=== PATIENT | female | born 1985 | race Caucasian/White ===

== ENCOUNTER 2016-07-03 16:39 | Emergency (ER) | payer OTHER ==
[~2016-07-03] VITALS: Ht 167.6 cm; Wt 131.5 kg
[~2016-07-03 16:39] MED LIST: ASPI81TA82 PO; FOLI5CAP PO; MACR100C PO; PRENTAB72 PO
[2016-07-03 17:41] VITALS: BP 126/96; PULSE 100
[2016-07-03] MEDS ORDERED: ACETAMINOPHEN 325 MG TAB PO ONE (17:45)
[2016-07-03 17:46] VITALS: BP 124/77; PULSE 122
[2016-07-03 18:08] LABS: BACTERIA, URINE FEW /hpf; BLOOD, URINE NEG (NEG); COMMENT (UR) CULT NOT INDICATED; CULTURE IF INDICATED CULT NOT INDICATED; GLUCOSE,URINE NEG (NEG); KETONE, URINE NEG (NEG); MUCUS URINE FEW /lpf (OCC); NITRITE,URINE NEG (NEG); PH, URINE 5.5 (5.0-8.5); SQUAMOUS EPITHELIAL CELL URINE 6 /hpf (0-5); URINE COLOR YELLOW (YELLW/STRAW)
--- NOTE | 2016-07-03 18:20 | PD ---
HPI Chief Complaint abdominal cramping, sob, headache Date Seen: Jul 03, 2016 Time Seen: 17:30 Travel History International Travel<30 Days: No Contact w/Intl Traveler<30Days: No Known Affected Area: No History of Present Illness HPI Pt is a 30 y/o CF with IUP at 16 wks by stated AMI who presents with multiple complaints: sharp abdominal pains (diffuse location, intermittent), lower abdominal cramping, sob with exertion, headache. Pt reports sharp abdominal pain intermittently x 2 days, currently feeling on both sides. also feeling some sob for past few weeks, mainly with exertion. reports + frequent headaches, currently has dull headache at temples. Pt has not taken tylenol. Pt states she has not had any water to drink today. She reports that she normally drinks either juice or soda, does not drink much water. denies palpitations, vag bleeding, vag discharge, dysuria reports feeling occ flutters Para: 1 : 7 Miscarriage: 5 History Past Medical History Narrative Medical morbid obesity recurrent loss MTHFR heterozygote thyroid nodule Obstetric History Obstetric History 2006 SAB at 6wks 2008 IUFD at 19 wks, ?NTD 2010 FT for breech, 7#8oz, pt reports elevated blood pressure at delivery, but denies elevated blood pressure during 2010 SAB at 6 wks 2013 SAB first trimester 2015 SAB first trimester Past Surgical History Narrative Surgical D+C lumpectomy left breast 2009 Family History Narrative Family History leukemia Social History Alcohol Use: No Tobacco Use: No Substance Abuse: No Allergies-Medications (Allergen,Severity, Reaction): Coded Allergies: No Known Allergies (Unverified , 04/23/16) Home Meds Active Scripts Nitrofurantoin Monohyd Macro (Macrobid)100 Mg [id number] Mg PO BID 7 Days Prov:Maria Dolores Neil MD 04/19/16 Reported Medications Vit W/ Ferrous Fumara () Tab1 Po 04/19/16 Folic Acid5 M1 5 Mg Cap4 Mg PO 04/19/16 Aspirin (Aspir-81)81 Mg Tab81 Mg PO DAILY 04/19/16 Review of Systems General / Constitutional: No: Fever, Weight Gain, Weight Loss, Chills, Other Eyes: No: Diploplia, Blurred Vision, Visual changes, Pain, Photophobia, Other HENT: Headaches, Lightheadedness Cardiovascular: No: Irregular Rhythm, Chest Pain or Discomfort, Palpitations, Tachycardia, Syncope, Varicosities, Edema, Cyanosis, Other Respiratory: Short of Breath Gastrointestinal: Abdominal Pain Genitourinary: No: Urgency, Frequency, Dysuria, Nocturia, Hematuria, Decreased Urinary Output, Oliguria, Hesitancy, Dribbling, Incontinence, Pelvic Pain, Dyspareunia, Discharge, Menorrhagia, Vaginal Bleeding, Other Musculoskeletal: No: Limited ROM, Weakness, Cramping, Edema, Pain, Other Skin: No Rash, No Itching, No Dryness, No Lumps, No Change in Pigmentation, No Change in Nails, No Alopecia, No Lesions, No Breast Lumps, No Breast Tenderness , No Breast Swelling, No Other Neurologic: No: Weakness, Dizziness, Syncope, Focal Abnormalities, Coordination Problem, Headache, Slurred Speech, Seizures, Other Psychiatric: No: Anxiety, Depression, Suicidal Ideations, Disorder of Thought, Mood Disorder, Substance Abuse, Homicidal Ideation, Other Endocrine: No: Heat Intolerance, Cold Intolerance, Polydipsia, Polyuria, Other Hematologic/Lymphatic: No Easy Bruising, No Lymph Node Enlargement, No Other Physical Exam Narrative GENERAL: obese patient. SKIN: Warm and dry. HEAD: Normocephalic and atraumatic. EYES: No scleral icterus. No injection or drainage. ENT: No nasal drainage noted. Mucous membranes pink. Airway patent. NECK: Supple, trachea midline. No JVD. thyroid enlarged CARDIOVASCULAR: Regular rate and rhythm, 2/6 CARMELO RESPIRATORY: Breath sounds equal bilaterally. No accessory muscle use. ABDOMEN/GI: Abdomen soft, non-tender, bowel sounds present, no rebound, no guarding obese GENITOURINARY: External Genitalia: intact and normal in appearance BUS glands: wnl Cervix: posterior Dilatation: closed Effacement: thick Station: high Presentation: n/v Membranes: intact Uterine Contractions: neg FHT's: 150s EXTREMITIES: No cyanosis or edema. BACK: Nontender without obvious deformity. No CVA tenderness. NEUROLOGICAL: Awake and alert. Motor and sensory grossly within normal limits. Five out of 5 muscle strength in all muscle groups. Normal speech. Data Data Vital Signs Reviewed: Yes (159/96, 113. O2 sat 99% on room air) Orders Vital Signs (Adult) .ON ADMISSION (07/03/16 17:40) ^ Labor Status (07/03/16 17:40) Urinalysis - C+S If Indicated (07/03/16 17:40) ^ Hydration (07/03/16 17:40) Acetaminophen (Tylenol) (07/03/16 17:45) MDM Medical Record Reviewed: Yes ([facility] ultrasound report and consult reviewed) Narrative Course / MDM 30 y/o with IUP at 16.1 wks with abdominal cramping, headache, mild sob , recurrent sab --cramping: check UA (culture not indicated), cervix closed --headache: po hydrate, tylenol now. Pt counseled on adequate hydration --sob: normal sats, lungs CTA. discussed dyspnea of --elevated blood pressure: denies h/o except at delivery with child in 2009. f /u with OB --thyroid nodule: reports normal TFTs, had ultrasound, biopsy pending Plan d/c home increase po hydration return for worsening symptoms keep u/s appt with OB diagnostics on 07/19 keep OB appt on 07/25 Diagnosis Diagnosis: Primary Impression: Abdominal pain affecting , antepartum Additional Impression: 16 weeks gestation of Disposition: 01 DISCHARGE HOME Jorge A Ortega MD Jul 03, 2016 18:20
== END 2016-07-03 18:34 | disposition home or self-care (01) ==
LOC: HOBED 16:39
DX: O26.892 Other specified pregnancy related conditions, second trimester (principal); R10.30 Lower abdominal pain, unspecified; R51 Headache; R06.02 Shortness of breath; R03.0 Elevated blood-pressure reading, without diagnosis of hypertension; E04.1 Nontoxic single thyroid nodule; O26.22 Pregnancy care for patient with recurrent pregnancy loss, second trimester; E66.01 Morbid (severe) obesity due to excess calories; Z3A.16 16 weeks gestation of pregnancy
CPT/HCPCS: 81001; 99284

== ENCOUNTER → 2016-07-19 | Outpatient (CLI) | payer OTHER ==
[~2016-07-19] MED LIST changes: -ASPI81TA82 PO; +ENOX40P SQ; +LEVO.05 PO; -MACR100C PO; -PRENTAB72 PO
== END ==
LOC: HPND 12:38
PROVIDERS: ATTEND Obstetrics & Gynecology
DX: O99.212 Obesity complicating pregnancy, second trimester (principal); Z3A.18 18 weeks gestation of pregnancy
CPT/HCPCS: 76811; 76817

== ENCOUNTER → 2016-08-23 | Outpatient (CLI) | payer OTHER | LOC: HPND 08:29 | PROVIDERS: ATTEND Obstetrics & Gynecology | DX: O99.212 Obesity complicating pregnancy, second trimester (principal); O09.292 Supervision of pregnancy with other poor reproductive or obstetric history, second trimester; E66.01 Morbid (severe) obesity due to excess calories; Z68.42 Body mass index [BMI] 45.0-49.9, adult | CPT/HCPCS: 76816 ==

== ENCOUNTER → 2016-09-20 | Outpatient (CLI) | payer OTHER | LOC: HPND 09:30 | PROVIDERS: ATTEND Obstetrics & Gynecology | DX: O09.292 Supervision of pregnancy with other poor reproductive or obstetric history, second trimester (principal); O35.1XX0 Maternal care for (suspected) chromosomal abnormality in fetus, not applicable or unspecified; O99.212 Obesity complicating pregnancy, second trimester; Z68.42 Body mass index [BMI] 45.0-49.9, adult | CPT/HCPCS: 76816 ==

== ENCOUNTER 2016-11-22 04:31 | Emergency (ER) | payer OTHER ==
[~2016-11-22] VITALS: Ht 172.7 cm; Wt 99.0 kg
[~2016-11-22 04:31] MED LIST changes: -ENOX40P SQ; -LEVO.05 PO
[2016-11-22 04:32] VITALS: BP 184/97; PULSE 138; RESP 22; TEMP 98.8; O2SAT 96
[2016-11-22] MEDS ORDERED: ENOX40P SQ (04:58)
[2016-11-22] MEDS ORDERED: LEVO.05 PO (04:58)
[2016-11-22 05:00] VITALS: BP 177/121; PULSE 110; RESP 18; O2SAT 98
--- NOTE | 2016-11-22 05:05 | PD ---
HPI Chief Complaint: Respiratory Symptoms Time Seen by Provider: 04:53 Travel History International Travel<30 days: No Contact w/Intl Traveler<30days: No Traveled to known affect area: No History of Present Illness HPI This patient is 37 weeks . She reports a few hours of runny nose and congestion and cough. She's not had fever. She is not short of breath. She has had a few hours of bilateral pelvic discomfort and pressure. No vaginal bleeding or fluid gush. Blood pressure 180s systolic. Symptom severity is mild. PFSH Past Medical History Hx Anticoagulant Therapy: No Blood Disorders: Yes (MTHFR) Cancer: Yes (thyroid) Cardiovascular Problems: No Diminished Hearing: No Gastrointestinal Disorders: No Genitourinary: Yes (UTI CURRENTLY) Respiratory: No ?: : 6 Para: 1 Miscarriage: 4 : 0 Ovarian Cysts: Yes Past Surgical History Abdominal Surgery: No Cardiac Surgery: No Section: Yes Ear Surgery: No Endocrine Surgery: No Eye Surgery: No Genitourinary Surgery: No Gynecologic Surgery: Yes (LEFT BREAST -INCISION AND DRAINAGE X 2) Hysterectomy: No Joint Replacement: No Neurologic Surgery: No Oral Surgery: No Thoracic Surgery: No Other Surgery: Yes (LT BREAST ABSCESS X 2) Social History Alcohol Use: No Tobacco Use: No Substance Use: No Allergies-Medications (Allergen,Severity, Reaction): Coded Allergies: No Known Allergies (Unverified , 11/22/16) Reported Meds & Prescriptions Reported Meds & Active Scripts Active Reported Synthroid (Levothyroxine Sodium) 50 Mcg Tab 50 Mcg PO DAILY Lovenox Inj (Enoxaparin Sodium) 40 Mg/0.4 Ml Syr 40 Mg SQ DAILY Review of Systems General / Constitutional: No: Fever HENT: No: Headaches Cardiovascular: No: Chest Pain or Discomfort Physical Exam Narrative RESPIRATORY: Respiratory effort unlabored, no retractions or use of accessory muscles. Breath sounds are clear and symmetric. NECK: Symmetrical appearance, midline trachea. No mass or crepitus. Thyroid without enlargement, tenderness, or mass. Nares shows clear rhinorrhea Throat clear GASTROINTESTINAL: Abdomen soft, non-tender, nondistended. Positive bowel sounds. No hepato-splenomegaly, or palpable masses. No guarding. Data Data Last Documented VS Vital Signs Date Time Temp Pulse Resp B/P Pulse Ox O2 Delivery O2 Flow Rate FiO2 11/22/16 05:00 110 18 177/121 98 5/30/17 04:32 98.8 Room Air MDM Medical Decision Making Medical Screen Exam Complete: Yes Emergency Medical Condition: Yes Medical Record Reviewed: Yes Differential Diagnosis Labor, accelerated hypertension, URI Narrative Course I have reviewed the patient's electronic medical record. Patient has findings consistent with acute viral URI which requires no specific treatment Has accelerated hypertension and is 37 weeks with some pelvic pressure Recommending she will to labor and delivery to rule out labor OB hospitalist to reassess pressure and decide whether that requires urgent treatment given her condition Diagnosis Primary Impression: Abdominal pain affecting , antepartum Additional Impressions: Accelerated hypertension Upper respiratory tract infection Qualified Code: J06.9 - Viral upper respiratory tract infection Additional Instructions: Go up to labor and delivery for assessment Med/Other Pt SpecificInfo: Other Disposition: 01 DISCHARGE HOME Condition: Stable Jj Key MD November 22, 2016 05:05
== END 2016-11-22 05:20 | disposition home or self-care (01) ==
LOC: NEPE 04:31
DX: O26.893 Other specified pregnancy related conditions, third trimester (principal); R10.2 Pelvic and perineal pain; O16.3 Unspecified maternal hypertension, third trimester; O99.89 Other specified diseases and conditions complicating pregnancy, childbirth and the puerperium; J06.9 Acute upper respiratory infection, unspecified; B97.89 Other viral agents as the cause of diseases classified elsewhere; Z86.2 Personal history of diseases of the blood and blood-forming organs and certain disorders involving the immune mechanism; Z87.448 Personal history of other diseases of urinary system; Z3A.37 37 weeks gestation of pregnancy
CPT/HCPCS: 99281

== ENCOUNTER 2016-11-22 05:15 | Observation (INO) | payer OTHER ==
[2016-11-22] VITALS (66 sets, daily range): BP systolic 120–151; BP diastolic 53–92; PULSE 80–102; RESP 20; TEMP 98.2; O2SAT 96–98
[~2016-11-22 05:15] MED LIST changes: +ENOX40P SQ; +LEVO.05 PO
[2016-11-22] MEDS ORDERED: LACTATED RINGER'S 1000 ML INJ 1,000 ML IV SCH (06:00)
[2016-11-22] MEDS ORDERED: ONDANSETRON HCL 4 MG/2 ML VIAL IV PRN (06:00)
[2016-11-22] MEDS ORDERED: SODIUM CHLORIDE 0.9% FLUSH 10 ML FLUSH IV FLUSH PRN (06:00)
[2016-11-22] MEDS ORDERED: CALCIUM GLUCONATE 10% 1 GM/10 ML VIAL IV PUSH PRN (06:00)
[2016-11-22] MEDS ORDERED: NIFEdipine 10 MG CAP PO PRN ×3 (06:00→06:45)
[2016-11-22] MEDS ORDERED: ACETAMINOPHEN 325 MG TAB PO PRN (06:00)
[2016-11-22] MEDS ORDERED: PROMETHAZINE/CODEINE 6.25 MG/10 MG/5 ML CUP PO PRN (06:45)
--- NOTE | 2016-11-22 06:45 | RADRPT ---
EXAM DATE/TIME: 11/22/2016 06:38 [facility] COMPARISON: CHEST PA & LAT, December 24, 2014, 11:59. INDICATIONS : Short of breath. MEDICAL HISTORY : None. SURGICAL HISTORY : None. ENCOUNTER: Initial ACUITY: 1 day PAIN SCORE: 0/10 LOCATION: Bilateral chest FINDINGS: PA and lateral views of the chest demonstrate the lungs to be symmetrically aerated without evidence of mass, infiltrate or effusion. The cardiomediastinal contours are unremarkable. Osseous structure s are intact. CONCLUSION: No acute disease. Home Weber MD on November 22, 2016 at 6:43 Board Certified Radiologist. This report was verified electronically.
[2016-11-22 06:47] LABS: BACTERIA, URINE MANY /hpf; BLOOD, URINE TRACE (NEG); COMMENT (UR) CATH-CULTURE IND; CULTURE IF INDICATED CATH CULTURE IND; GLUCOSE,URINE NEG (NEG); KETONE, URINE NEG (NEG); MUCUS URINE FEW /lpf (OCC); NITRITE,URINE NEG (NEG); PH, URINE 6.5 (5.0-8.5); SQUAMOUS EPITHELIAL CELL URINE 2 /hpf (0-5); URINE COLOR YELLOW (YELLW/STRAW)
[2016-11-22] MEDS ORDERED: LABETALOL HCL 100 MG/20 ML VIAL IV PUSH PRN (07:00)
[2016-11-22 07:13] LABS: ALT (GPT) 12 U/L (10-53); ANION GAP 11 MEQ/L (5-15); AST (GOT) 16 U/L (15-37); BICARBONATE 22.7 MEQ/L (21.0-32.0); BLOOD UREA NITROGEN 6 MG/DL (7-18); CHLORIDE 105 MEQ/L (98-107); GLOMERULAR FILTRATION RATE 126 ML/MIN (>89); POTASSIUM 3.7 MEQ/L (3.5-5.1); SODIUM (NA) 139 MEQ/L (136-145); URIC ACID 5.1 MG/DL (2.6-6.0)
[2016-11-22 07:15] LABS: ALKALINE PHOSPHATASE 93 U/L (45-117); TOTAL BILIRUBIN ADULT 0.2 MG/DL (0.2-1.0)
[2016-11-22] MEDS ORDERED: cefTRIAXone INJ 1,000 MG in SODIUM CHLORIDE 0.9% INJ 100 ML IV SCH (08:00)
[2016-11-22] MEDS ORDERED: SODIUM CHLORIDE 0.9% FLUSH 10 ML FLUSH IV FLUSH SCH (09:00)
[2016-11-22 09:33] LABS: HEMATOCRIT 33.2 % (35.0-46.0); MEAN CORPUSCULAR HEMOGLOBIN 30.4 PG (27.0-34.0); MEAN CORPUSCULAR HGB CONC 34.1 % (32.0-36.0); PLATELET COUNT 302 TH/MM3 (150-450); RED BLOOD COUNT 3.74 MIL/MM3 (4.00-5.30); RED CELL DISTRIBUTION WIDTH 14.7 % (11.6-17.2); REVIEW FLAG FINAL; WHITE BLOOD COUNT 12.7 TH/MM3 (4.0-11.0)
--- NOTE | 2016-11-22 09:33 | PD ---
HPI Chief Complaint Upper respiratory cough congestion Date Seen: November 22, 2016 Time Seen: 05:55 Travel History International Travel<30 Days: No Contact w/Intl Traveler<30Days: No Known Affected Area: No History of Present Illness HPI This patient is 30-year-old white female previous 1 now 36 weeks gestation who was sent from the emergency room for evaluation of hypertension in . Patient presented to the emergency room complaining of upper respiratory cough and congestion and shortness of breath. Her blood pressure in the ER was in the 170-190 over 100 -110 range on 2 checks of her blood pressure. She states she has no history of hypertension takes no medication for hypertension and the only time she had any high blood pressure was and she was last time. She does complain of a worsening cough shortness of breath, sinus cold and congestion., a sinus infection over the last week or so, she states she has been coughing up some green sputum she denies headache , visual changes, abdominal pain, baby is active heart rate tracing is reactive and she is not leyla now. 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 She is followed by an endocrinology team for her thyroid neoplasm and the plan for that is just when she delivers afterwards steroid to remove her thyroid cording to her she says that they've told her there is no salcido on that. She can be allowed basically carrier out as normal limits and treated afterwards + MTHFR on lovenox for this Obstetric History Obstetric History 1 for breech she has a history of a bicornuate uterus which tends to leave her baby is in a breech position this baby is also breech 5 ABs Past Surgical History Narrative Surgical 1 Social History Alcohol Use: No Tobacco Use: No Substance Abuse: No Allergies-Medications (Allergen,Severity, Reaction): Coded Allergies: No Known Allergies (Unverified , 11/22/16) Home Meds Reported Medications Levothyroxine (Synthroid)50 Mcg Tab50 Mcg PO DAILY #30 TAB Ref 0 11/22/16 Enoxaparin Inj (Lovenox Inj)40 Mg/0.4 Ml Syr40 Mg SQ DAILY Ref 0 11/22/16 Discontinued Reported Medications Folic Acid 5 Mg Cap4 Mg PO 04/19/16 Review of Systems General / Constitutional: No: Fever, Weight Gain, Chills, Other Eyes: No: Diploplia, Blurred Vision, Visual changes, Pain, Photophobia HENT: No: Headaches, Vertigo, Lightheadedness Cardiovascular: No: Irregular Rhythm, Chest Pain or Discomfort, Palpitations, Tachycardia, Syncope, Varicosities, Edema, Cyanosis Respiratory: Cough, Short of Breath, Other Gastrointestinal: No: Nausea, Vomiting, Diarrhea Genitourinary: No: Decreased Urinary Output, Oliguria Musculoskeletal: No: Limited ROM, Weakness, Cramping, Edema, Pain Skin: No Rash, No Itching, No Dryness, No Lumps, No Change in Pigmentation, No Change in Nails, No Alopecia, No Lesions Neurologic: No: Weakness, Dizziness, Syncope, Focal Abnormalities, Coordination Problem, Headache, Slurred Speech, Seizures Psychiatric: No: Depression, Suicidal Ideations, Homicidal Ideation Endocrine: No: Heat Intolerance, Cold Intolerance, Polydipsia, Polyuria, Other Physical Exam Vital Signs Date Time Temp Pulse Resp B/P Pulse Ox O2 Delivery O2 Flow Rate FiO2 11/22/16 09:00 94 11/22/16 08:55 91 11/22/16 08:54 90 142/77 11/22/16 08:53 20 11/22/16 08:50 93 11/22/16 08:45 85 11/22/16 08:40 89 11/22/16 08:35 98 11/22/16 07:46 98.2 11/22/16 07:19 92 148/88 11/22/16 07:18 20 11/22/16 06:21 98 20 136/84 11/22/16 05:59 93 131/77 Narrative GENERAL: Well-nourished, obese patient. approx 320 lbs SKIN: Warm and dry. HEAD: Normocephalic and atraumatic. EYES: No scleral icterus. No injection or drainage. ENT: No nasal drainage noted. Mucous membranes pink. Airway patent. NECK: Supple, trachea midline. No JVD. Thyroid is palpable, mildly enlarged and firm and nontender CARDIOVASCULAR: Regular rate and rhythm positive holosystolic murmur which is normal in , gallops, or rubs. RESPIRATORY: Breath sounds equal bilaterally somewhat diminished ,no rales or rhonchi, no E to A changes, no wheezing. No accessory muscle use. BREASTS: Bilateral exam showed no masses , no retractions, no nipple discharge. ABDOMEN/GI: Abdomen soft, non-tender, bowel sounds present, no rebound, no guarding Gravid to [-38] weeks size Fundal Height: [38-] GENITOURINARY: Presentation: [Breech-] Membranes: [intact ] Uterine Contractions: [0-] FHT's: Category: [1-] Baseline: [144-] Reactive: [-yes] Variability: [mod-] Decels: [-0] EXTREMITIES: No cyanosis or edema. BACK: Nontender without obvious deformity. No CVA tenderness. NEUROLOGICAL: Awake and alert. Motor and sensory grossly within normal limits. Five out of 5 muscle strength in all muscle groups. Normal speech. Data Data Orders Place In Observation (11/22/16 ) Vital Signs (Adult) Q5MX4,Q15MX4,Q30MX2,Q1H (11/22/16 06:00) Activity Bed Rest (11/22/16 06:00) Intake + Output Q1H (11/22/16 06:00) Notify Parameters (11/22/16 06:00) Heart CONTINUOUS (11/22/16 06:00) Urinary Catheter Management NANI.Q8H (11/22/16 06:00) ^ Check Deep Tendon Reflexes Q1H (11/22/16 06:00) Diet Npo (11/22/16 Breakfast) Lactated Ringer's 1000 Ml Inj (Lr 1000 M (11/22/16 06:00) Sodium Chloride 0.9% Flush (Ns Flush) (11/22/16 06:00) Sodium Chloride 0.9% Flush (Ns Flush) (11/22/16 09:00) Nifedipine (Procardia) (11/22/16 06:00) Nifedipine (Procardia) (11/22/16 06:30) Nifedipine (Procardia) (11/22/16 06:45) Labetalol Inj (Trandate Inj) (11/22/16 07:00) Calcium Gluconate Inj (Calcium Gluconate (11/22/16 06:00) Acetaminophen (Tylenol) (11/22/16 06:00) Ondansetron Inj (Zofran Inj) (11/22/16 06:00) Comprehensive Metabolic Panel (11/22/16 06:00) Uric Acid (11/22/16 06:00) Urinalysis - C+S If Indicated (11/22/16 06:00) Total Protein 24hr Urine (11/22/16 06:00) Chest, Pa & Lat (11/22/16 ) Ob (2e) Additional Admit Info (11/22/16 06:25) Ceftriaxone Inj (Rocephin Inj) (11/22/16 08:00) Promethazine/Codeine Liq (Phenergan-Code (11/22/16 06:45) Urine Culture (11/22/16 06:15) Sputum Culture And Gram Stain (11/22/16 07:20) Us Ob Bpp Wo Nst W Repeat (11/22/16 06:00) Cbc No Diff, Includes Plts (11/22/16 09:07) Labs CXR negative Laboratory Tests Test 11/22/16 06:15 Urine Color YELLOW Urine Turbidity CLEAR Urine pH 6.5 Urine Specific [place] 1.012 Urine Protein NEG Urine Glucose (UA) NEG Urine Ketones NEG Urine Occult Blood TRACE Urine Nitrite NEG Urine Bilirubin NEG Urine Urobilinogen LESS THAN 2.0 Urine Leukocyte Esterase NEG Urine RBC 9 Urine WBC 1 Urine Squamous Epithelial 2 Cells Urine Bacteria MANY Urine Mucus FEW Microscopic Urinalysis Comment CATH-CULTURE IND Sodium Level 139 Potassium Level 3.7 Chloride Level 105 Carbon Dioxide Level 22.7 Anion Gap 11 Blood Urea Nitrogen 6 Creatinine 0.56 Estimat Glomerular Filtration 126 Rate Random Glucose 80 Uric Acid 5.1 Calcium Level 8.7 Total Bilirubin 0.2 Aspartate Amino Transf 16 (AST/SGOT) Alanine Aminotransferase 12 (ALT/SGPT) Alkaline Phosphatase 93 Total Protein 6.6 Albumin 2.3 Date/Time Procedure Status Source Growth 11/22/16 06:15 Urine Culture Received Urine Catheterized Urine Pending MDM Interpretation(s) The patient is 30-year-old white female previous 1 now 36 weeks who goes to [facility] for care and she wishes to go to [facility] if she needs to be delivered, presents with initially shortness of breath and upper respiratory infection signs and symptoms. Noted to have a high blood pressure in the emergency room and she was sent to labor and delivery. Here in OB ED on the labor delivery for blood pressure is normal to borderline high, laboratories within normal limits with normal liver functions and CBC and platelets, no proteinuria chest x-ray was done which is negative for infiltrates or other pathology, heart rate tracings remained reactive with no contractions Plan Plan is to observe the patient for further hypertension. Continue to monitor the fetus , consider admission for 24-hour urine protein, or at least observation for a few hours to make sure she has a number of blood pressures within normal limits. Patient states that if she needs to be admitted or delivered and she wanted to be transferred [facility] where her doctors are present. She only came here because she thought she's had a cold and when get some treatment in the emergency room in go home she's not really wanting be admitted if possible Diagnosis Diagnosis: Primary Impression: Hypertension affecting , antepartum, third trimester Additional Impressions: Upper respiratory tract infection Obesity affecting in third trimester Condition: Stable Cuauhtemoc Quach II, MD November 22, 2016 09:33
--- NOTE | 2016-11-22 09:39 | HHI.HP ---
History & Physical H&P OB ED Note (Detail) Patient Name: Omer Rizzo Unit Number: [id number] Date of : 1985 Patient Status: Admitted Inpatient (obs) Attending Doctor: Cuauhtemoc Quach II, MD HPI HPI Chief Complaint Upper respiratory cough congestion Date Seen: November 22, 2016 Time Seen: 05:55 Travel History International Travel<30 Days: No Contact w/Intl Traveler<30Days: No Known Affected Area: No History of Present Illness HPI This patient is 30-year-old white female previous 1 now 36 weeks gestation who was sent from the emergency room for evaluation of hypertension in . Patient presented to the emergency room complaining of upper respiratory cough and congestion and shortness of breath. Her blood pressure in the ER was in the 170-190 over 100 -110 range on 2 checks of her blood pressure. She states she has no history of hypertension takes no medication for hypertension and the only time she had any high blood pressure was and she was last time. She does complain of a worsening cough shortness of breath, sinus cold and congestion., a sinus infection over the last week or so, she states she has been coughing up some green sputum she denies headache , visual changes, abdominal pain, baby is active heart rate tracing is reactive and she is not leyla now. 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 She is followed by an endocrinology team for her thyroid neoplasm and the plan for that is just when she delivers afterwards steroid to remove her thyroid cording to her she says that they've told her there is no salcido on that. She can be allowed basically carrier out as normal limits and treated afterwards + MTHFR on lovenox for this Obstetric History Obstetric History 1 for breech she has a history of a bicornuate uterus which tends to leave her baby is in a breech position this baby is also breech 5 ABs Past Surgical History Narrative Surgical 1 Social History Alcohol Use: No Tobacco Use: No Substance Abuse: No Allergies-Medications Allergies-Medications (Allergen,Severity, Reaction): Coded Allergies: No Known Allergies (Unverified , 11/22/16) Home Meds Reported Medications Levothyroxine (Synthroid)50 Mcg Tab50 Mcg PO DAILY #30 TAB Ref 0 11/22/16 Enoxaparin Inj (Lovenox Inj)40 Mg/0.4 Ml Syr40 Mg SQ DAILY Ref 0 11/22/16 Discontinued Reported Medications Folic Acid 5 Mg Cap4 Mg PO 04/19/16 ROS Review of Systems General / Constitutional: No: Fever, Weight Gain, Chills, Other Eyes: No: Diploplia, Blurred Vision, Visual changes, Pain, Photophobia HENT: No: Headaches, Vertigo, Lightheadedness Cardiovascular: No: Irregular Rhythm, Chest Pain or Discomfort, Palpitations, Tachycardia, Syncope, Varicosities, Edema, Cyanosis Respiratory: Cough, Short of Breath, Other Gastrointestinal: No: Nausea, Vomiting, Diarrhea Genitourinary: No: Decreased Urinary Output, Oliguria Musculoskeletal: No: Limited ROM, Weakness, Cramping, Edema, Pain Skin: No Rash, No Itching, No Dryness, No Lumps, No Change in Pigmentation, No Change in Nails, No Alopecia, No Lesions Neurologic: No: Weakness, Dizziness, Syncope, Focal Abnormalities, Coordination Problem, Headache, Slurred Speech, Seizures Psychiatric: No: Depression, Suicidal Ideations, Homicidal Ideation Endocrine: No: Heat Intolerance, Cold Intolerance, Polydipsia, Polyuria, Other Physical Exam Physical Exam Vital Signs Date Time Temp Pulse Resp B/P Pulse Ox O2 Delivery O2 Flow Rate FiO2 11/22/16 09:00 94 11/22/16 08:55 91 11/22/16 08:54 90 142/77 11/22/16 08:53 20 11/22/16 08:50 93 11/22/16 08:45 85 11/22/16 08:40 89 11/22/16 08:35 98 11/22/16 07:46 98.2 11/22/16 07:19 92 148/88 11/22/16 07:18 20 11/22/16 06:21 98 20 136/84 11/22/16 05:59 93 131/77 Narrative GENERAL: Well-nourished, obese patient. approx 320 lbs SKIN: Warm and dry. HEAD: Normocephalic and atraumatic. EYES: No scleral icterus. No injection or drainage. ENT: No nasal drainage noted. Mucous membranes pink. Airway patent. NECK: Supple, trachea midline. No JVD. Thyroid is palpable, mildly enlarged and firm and nontender CARDIOVASCULAR: Regular rate and rhythm positive holosystolic murmur which is normal in , gallops, or rubs. RESPIRATORY: Breath sounds equal bilaterally somewhat diminished ,no rales or rhonchi, no E to A changes, no wheezing. No accessory muscle use. BREASTS: Bilateral exam showed no masses , no retractions, no nipple discharge. ABDOMEN/GI: Abdomen soft, non-tender, bowel sounds present, no rebound, no guarding Gravid to [-38] weeks size Fundal Height: [38-] GENITOURINARY: Presentation: [Breech-] Membranes: [intact ] Uterine Contractions: [0-] FHT's: Category: [1-] Baseline: [144-] Reactive: [-yes] Variability: [mod-] Decels: [-0] EXTREMITIES: No cyanosis or edema. BACK: Nontender without obvious deformity. No CVA tenderness. NEUROLOGICAL: Awake and alert. Motor and sensory grossly within normal limits. Five out of 5 muscle strength in all muscle groups. Normal speech. Data Data Data Orders Place In Observation (11/22/16 ) Vital Signs (Adult) Q5MX4,Q15MX4,Q30MX2,Q1H (11/22/16 06:00) Activity Bed Rest (11/22/16 06:00) Intake + Output Q1H (11/22/16 06:00) Notify Parameters (11/22/16 06:00) Heart CONTINUOUS (11/22/16 06:00) Urinary Catheter Management NANI.Q8H (11/22/16 06:00) ^ Check Deep Tendon Reflexes Q1H (11/22/16 06:00) Diet Npo (11/22/16 Breakfast) Lactated Ringer's 1000 Ml Inj (Lr 1000 M (11/22/16 06:00) Sodium Chloride 0.9% Flush (Ns Flush) (11/22/16 06:00) Sodium Chloride 0.9% Flush (Ns Flush) (11/22/16 09:00) Nifedipine (Procardia) (11/22/16 06:00) Nifedipine (Procardia) (11/22/16 06:30) Nifedipine (Procardia) (11/22/16 06:45) Labetalol Inj (Trandate Inj) (11/22/16 07:00) Calcium Gluconate Inj (Calcium Gluconate (11/22/16 06:00) Acetaminophen (Tylenol) (11/22/16 06:00) Ondansetron Inj (Zofran Inj) (11/22/16 06:00) Comprehensive Metabolic Panel (11/22/16 06:00) Uric Acid (11/22/16 06:00) Urinalysis - C+S If Indicated (11/22/16 06:00) Total Protein 24hr Urine (11/22/16 06:00) Chest, Pa & Lat (11/22/16 ) Ob (2e) Additional Admit Info (11/22/16 06:25) Ceftriaxone Inj (Rocephin Inj) (11/22/16 08:00) Promethazine/Codeine Liq (Phenergan-Code (11/22/16 06:45) Urine Culture (11/22/16 06:15) Sputum Culture And Gram Stain (11/22/16 07:20) Us Ob Bpp Wo Nst W Repeat (11/22/16 06:00) Cbc No Diff, Includes Plts (11/22/16 09:07) Labs CXR negative Laboratory Tests Test 11/22/16 06:15 Urine Color YELLOW Urine Turbidity CLEAR Urine pH 6.5 Urine Specific [place] 1.012 Urine Protein NEG Urine Glucose (UA) NEG Urine Ketones NEG Urine Occult Blood TRACE Urine Nitrite NEG Urine Bilirubin NEG Urine Urobilinogen LESS THAN 2.0 Urine Leukocyte Esterase NEG Urine RBC 9 Urine WBC 1 Urine Squamous Epithelial 2 Cells Urine Bacteria MANY Urine Mucus FEW Microscopic Urinalysis Comment CATH-CULTURE IND Sodium Level 139 Potassium Level 3.7 Chloride Level 105 Carbon Dioxide Level 22.7 Anion Gap 11 Blood Urea Nitrogen 6 Creatinine 0.56 Estimat Glomerular Filtration 126 Rate Random Glucose 80 Uric Acid 5.1 Calcium Level 8.7 Total Bilirubin 0.2 Aspartate Amino Transf 16 (AST/SGOT) Alanine Aminotransferase 12 (ALT/SGPT) Alkaline Phosphatase 93 Total Protein 6.6 Albumin 2.3 Date/Time Procedure Status Source Growth 11/22/16 06:15 Urine Culture Received Urine Catheterized Urine Pending MDM MDM Interpretation(s) The patient is 30-year-old white female previous 1 now 36 weeks who goes to [facility] for care and she wishes to go to [facility] if she needs to be delivered, presents with initially shortness of breath and upper respiratory infection signs and symptoms. Noted to have a high blood pressure in the emergency room and she was sent to labor and delivery. Here in OB ED on the labor delivery for blood pressure is normal to borderline high, laboratories within normal limits with normal liver functions and CBC and platelets, no proteinuria chest x-ray was done which is negative for infiltrates or other pathology, heart rate tracings remained reactive with no contractions Plan Plan is to observe the patient for further hypertension. Continue to monitor the fetus , consider admission for 24-hour urine protein, or at least observation for a few hours to make sure she has a number of blood pressures within normal limits. Patient states that if she needs to be admitted or delivered and she wanted to be transferred [facility] where her doctors are present. She only came here because she thought she's had a cold and when get some treatment in the emergency room in go home she's not really wanting be admitted if possible Diagnosis Diagnosis: Primary Impression: Hypertension affecting , antepartum, third trimester Additional Impressions: Upper respiratory tract infection Obesity affecting in third trimester Condition: Stable Cuauhtemoc Quach II, MD November 22, 2016 09:33 Cuauhtemoc Quach II, MD November 22, 2016 09:39
[2016-11-22] MEDS ORDERED: FLUTICASONE PROPIONATE 50 MCG/ACT 16 GM NASAL SPRAY EACH NARE SCH (10:00)
[2016-11-22] MEDS ORDERED: LORATADINE 10 MG TAB PO SCH (10:00)
--- NOTE | 2016-11-22 14:50 | HHI.PR ---
. Attending Note Patient is a 30-year-old female who is admitted for 24-hour obs due to upper respiratory infection and severe hypertension. Patient was seen initially in the main ED due to congestion, cough, and chest heaviness. Chest x-ray was noted be normal patient was given a dose of IV antibiotic and immediately sent up to labor delivery due to a blood pressure of 180/120. Repeat blood pressures appear labor and delivery were also elevated but were not in the severe range. Patient is 36-37 weeks with antepartum complications which include papillary thyroid cancer, obesity, previous section, breech presentation, MTH FR on Lovenox. Patient is scheduled to deliver at [facility]. Blood pressures are 130 to 150/80-90 with normal PI labs. She has a 24 hour urine protein ordered and pending and has voiced her desire to leave AGAINST MEDICAL ADVICE. I recommend the patient stay in the hospital due to the high blood pressure informing her of the risk of severe hypertension with possible eclampsia if she has not attended to closely. Patient voices her understanding of complications of leaving AGAINST MEDICAL ADVICE. - Vital Signs Date Time Temp Pulse Resp B/P Pulse Ox O2 Delivery O2 Flow Rate FiO2 11/22/16 13:40 85 11/22/16 13:39 84 139/76 11/22/16 13:36 20 11/22/16 13:36 80 120/53 11/22/16 13:35 90 11/22/16 13:30 87 11/22/16 13:25 81 11/22/16 13:20 88 11/22/16 13:15 90 11/22/16 13:10 90 11/22/16 13:05 88 11/22/16 13:00 89 11/22/16 12:55 91 11/22/16 12:50 94 11/22/16 12:40 95 11/22/16 12:35 88 11/22/16 12:30 86 11/22/16 12:25 89 11/22/16 12:20 102 11/22/16 12:15 89 11/22/16 12:10 97 11/22/16 12:05 86 11/22/16 12:00 91 11/22/16 11:55 88 11/22/16 11:50 87 11/22/16 11:46 20 11/22/16 11:45 96 11/22/16 11:43 82 151/92 11/22/16 11:40 90 11/22/16 11:35 87 11/22/16 11:30 85 11/22/16 11:25 83 11/22/16 11:20 91 11/22/16 11:15 88 11/22/16 11:05 89 11/22/16 11:00 87 11/22/16 10:55 89 11/22/16 10:50 86 11/22/16 10:45 90 11/22/16 10:44 87 147/87 11/22/16 10:43 20 11/22/16 10:05 92 11/22/16 10:00 94 11/22/16 09:55 93 11/22/16 09:50 86 11/22/16 09:45 87 11/22/16 09:40 86 11/22/16 09:35 87 11/22/16 09:30 97 11/22/16 09:25 87 11/22/16 09:20 88 11/22/16 09:15 89 11/22/16 09:10 87 97 11/22/16 09:05 97 97 11/22/16 09:00 97 11/22/16 09:00 94 11/22/16 08:55 97 11/22/16 08:55 91 11/22/16 08:54 90 142/77 11/22/16 08:53 20 11/22/16 08:50 93 11/22/16 08:50 98 11/22/16 08:45 98 11/22/16 08:45 85 11/22/16 08:40 97 11/22/16 08:40 89 11/22/16 08:35 98 11/22/16 08:35 96 11/22/16 07:46 98.2 11/22/16 07:19 92 148/88 11/22/16 07:18 20 11/22/16 06:21 98 20 136/84 11/22/16 05:59 93 131/77 CV - Regular Rate and Rhythm No Murmur Lungs - Clear to Auscultation Abdomen - Soft, Nontender Active Bowel Sounds Present No Masses Extremities - Warm without Edema No Sores or Open Wounds -: 11/22/16 0845 11/22/16 0615 Marie Dawn MD November 22, 2016 14:50
[2016-11-23] MEDS ORDERED: LORATADINE 10 MG TAB PO SCH (09:00)
== END 2016-11-22 14:35 | disposition left against medical advice (07) ==
LOC: HOBED 05:15 → H2EA 06:26
PROVIDERS: ADMIT Obstetrics & Gynecology Maternal & Fetal Medicine; ATTEND Obstetrics & Gynecology Maternal & Fetal Medicine
DX: O16.3 Unspecified maternal hypertension, third trimester (principal); O99.213 Obesity complicating pregnancy, third trimester; E66.9 Obesity, unspecified; O99.513 Diseases of the respiratory system complicating pregnancy, third trimester; J06.9 Acute upper respiratory infection, unspecified; Q51.3 Bicornate uterus; Z3A.36 36 weeks gestation of pregnancy; O9A.113 Malignant neoplasm complicating pregnancy, third trimester; C73 Malignant neoplasm of thyroid gland; Z79.899 Other long term (current) drug therapy; Z79.01 Long term (current) use of anticoagulants
CPT/HCPCS: 59025; 71020; 76816; 76819; 76820; 80053; 81001; 84550; 85027; 87086; 99285; G0378; J0696; J7120